=== PATIENT | male | born 1935 | race Caucasian/White ===

== ENCOUNTER 2019-07-21 09:28 | Inpatient (IN) ==
[~2019-07-21 09:28] MED LIST: ceFAZolin 1,000 MG, Sodium Chloride IRRigation 1,000 ML IR ONE
[2019-07-21] MEDS ORDERED: *HR* Propofol 200 MG/20 ML VIAL IVP ONE (09:43)
[2019-07-21] MEDS ORDERED: Dexamethasone 4 MG/ML VIAL ONE (09:43)
[2019-07-21] MEDS ORDERED: CeFAZolin Syr 2,000MG/20 ML 2,000 MG/20 ML SYRINGE IVPB ONE (09:43)
[2019-07-21] MEDS ORDERED: Lidocaine -MPF 2% 2 ML VIAL ONE (09:43)
[2019-07-21] MEDS ORDERED: *HR* Phenylephrine 10 MG/ML VIAL ONE (09:43)
[2019-07-21] MEDS ORDERED: *HR* FentaNYL (PF) 100 MCG/2 ML VIAL ONE (09:43)
[2019-07-21] MEDS ORDERED: Lidocaine HCL 4 ML Topical Solution (Laryng-O-Jet Kit Sterile Pak) TP ONE (09:43)
[2019-07-21] MEDS ORDERED: Ondansetron 4 MG/2 ML VIAL ONE (09:43)
[2019-07-21] MEDS ORDERED: Ringers Solution, Lactated 1,000 ML IVC SCH (09:45)
[2019-07-21] MEDS ORDERED: *HR* Remifentanil 2 MG VIAL IVP ONE (10:01)
[2019-07-21] MEDS ORDERED: Protamine Sulfate 50 MG/5 ML VIAL IVP ONE (10:04)
[2019-07-21] MEDS ORDERED: Heparin 1,000 UNITS/500 mL 1,000 ML ONE (10:05)
[2019-07-21] MEDS ORDERED: EPHEDrine 50 MG/ML VIAL ONE (11:42)
[2019-07-21] MEDS ORDERED: *HR* Rocuronium Bromide 50 MG/5 ML VIAL ONE (11:56)
[2019-07-21] MEDS ORDERED: Neostigmine Methylsulfate 3 MG/3 ML SYRINGE ONE (13:56)
[2019-07-21] MEDS ORDERED: *HR* HYDROcodone/Acet 5/325 mg TABLET PO PRN (16:26)
[2019-07-21] MEDS ORDERED: Naloxone 0.4 MG/ML INJ IVP PRN (16:26)
[2019-07-21] MEDS ORDERED: *HR* Labetalol 20 MG/4 ML SYRINGE IVP PRN (16:26)
[2019-07-21] MEDS ORDERED: Ondansetron 4 MG/2 ML VIAL IVP PRN (16:26)
[2019-07-21] MEDS ORDERED: Acetaminophen 325 MG TABLET PO PRN (16:26)
[2019-07-21] MEDS: CeFAZolin 2 GM/120 ML BAG IVPB SCH (18:31)
[2019-07-21] MEDS ORDERED: Famotidine 20 MG TABLET PO SCH (21:00)
[2019-07-22] MEDS: CeFAZolin 2 GM/120 ML BAG IVPB SCH (04:25)
[2019-07-22 05:19] LABS: Basophils % 0.1 %; Hemoglobin 13.1 g/dL (12.9-16.9); Immature Granulocytes % 0.2 % (0-4); Lymphocytes # 0.9 K/mcL (0.6-4.6); Lymphocytes % 9.7 %; Mean Corpuscular HGB Conc 33.6 g/dL (31.6-35.5); Mean Corpuscular Hemoglobin 31.5 pg (28.0-33.3); Mean Corpuscular Volume 93.8 fL (83.0-100.0); Mean Platelet Volume 10.4 fL (9.4-12.4); Monocytes # 0.8 K/mcL (0.0-1.3); Monocytes % 8.9 %; Neutrophils # 7.2 K/mcL (1.6-8.9); Platelet Count 147 K/mcL (140-400); Red Blood Count 4.16 M/mcL (4.19-5.50); Red Cell Distribution Width 12.5 % (11.5-14.5); Segmented Neutrophils % 81.1 %; White Blood Count 8.9 K/mcL (4.3-11.1)
[2019-07-22 05:37] LABS: BUN/Creatinine Ratio 16 (6-26); Blood Urea Nitrogen 16 mg/dL (8-23); Calcium 8.6 mg/dL (8.6-10.3); Carbon Dioxide 22 mEq/L (23-29); Chloride 105 mEq/L (98-107); Glucose 115 mg/dL (70-105); Osmolality,Calculated 284 (280-300); Potassium 4.2 mEq/L (3.5-5.1); Sodium 136 mEq/L (136-145); eGFR For African Americans > 60 (> 60); eGFR For Non-African Americans > 60 (> 60)
[2019-07-22 07:20] VITALS: BP 110/60
[2019-07-22] MEDS ORDERED: Cholecalciferol (D-3) 1,000 UNIT (25MCG) TABLET PO SCH (09:00)
[2019-07-22] MEDS ORDERED: lisinopriL 10 MG TABLET PO SCH (09:00)
== END 2019-07-22 10:08 | disposition home or self-care (01) | DRG 39 ==
LOC: SAMDAY 09:28 → 3NENU 10:53
PROVIDERS: ADMIT Surgery Vascular Surgery; ATTEND Surgery Vascular Surgery